=== PATIENT | male | born 1970 | race Two or more races ===

== ENCOUNTER 2024-09-06 15:14 | Emergency (ER) | payer OTHER ==
[~2024-09-06] VITALS: Ht 182.9 cm; Wt 103.5 kg
[2024-09-06 15:15] VITALS: TEMP 98.2
--- NOTE | 2024-09-06 15:28 | ECG ---
[facility] Test Date: 2024-09-06 Test Time: 15:25:47 Pat Name: REN BARLOW Department: ER Room: Gender: Claims Investigator: Mary Lou : 1970 Requested By: LINUS COLLADO Order Number: [id number] Reading MD: Quan Raya Measurements Intervals [place] Rate: 96 P: 47 [place]: 174 QRS: -16 QRSD: 96 T: 37 QT: 348 QTc: 440 Interpretive Statements Sinus rhythm Borderline left axis deviation Abnormal R-wave progression, late transition ST elev, probable normal early repol pattern Baseline wander in lead(s) V4 Electronically Signed On 09-06-2024 20:39:50 PDT by Quan Raya Please click the below link to view image of tracing.
--- NOTE | 2024-09-06 15:29 | ED.PDOC ---
HPI Comments 53 year old male presents to the ED with chief complaint of lightheadedness. Patient reports that while at [employer] an hour ago when he started to experience lightheadedness with associated palpitations and an episode of nausea/vomiting. Patient relays that he has history of HTN, however, he stopped taking his medication 2 years ago. Patient denies any abdominal pain, chest pain, SOB, vertigo, headache, numbness, or weakness. Chief Complaint: Dizziness Time Seen by MD: 15:26 Reviewed Notes: Nurses Notes, Medications, Allergies Allergies: Coded Allergies: NO KNOWN ALLERGIES (Unverified , 09/06/24) Information Source: Patient Mode of Arrival: Ambulatory Severity: Moderate Timing: Hours Duration: Since onset Prehospital treatment: None Onset: At Rest Cardiac Risk Factors: HTN PE Risk Factors: None History of: None Past Medical History PAST MEDICAL HISTORY: HTN Surgical History: Denies all surgeries Family History Family History: Reviewed,noncontributory to illness Social History Smoker: Non-Smoker Alcohol: Occasionally Drugs: Denies Drug Use Lives In: Home Constitutional: denies: chills, diaphoresis, fatigue, fever, malaise, sweats, weakness, others EENTM: denies: blurred vision, double vision, ear bleeding, ear discharge, ear drainage, ear pain, ear ringing, eye pain, eye redness, hearing loss, mouth pain, mouth swelling, nasal discharge, nose bleeding, nose congestion, nose pain, photophobia, tearing, throat pain, throat swelling, voice changes, others Respiratory: denies: cough, hemoptysis, orthopnea, SOB at rest, shortness of breath, SOB with excertion, stridor, wheezing, others Cardiovascular: reports: lightheadedness, palpitations; denies: chest pain, dizzy spells, diaphoresis, Dyspnea on exertion, edema, irregular heart beat, left arm pain, PND, syncope, others Gastrointestinal: reports: nausea, vomiting; denies: abdomen distended, abdominal pain, blood streaked bowels, constipated, diarrhea, dysphagia, difficulty swallowing, hematemesis, melena, poor appetite, poor fluid intake, rectal bleeding, rectal pain, others Genitourinary: denies: burning, dysuria, flank pain, frequency, hematuria, incontinence, penile discharge, penile sore, pain, testicle pain, testicle swelling, urgency, others Neurological: denies: dizziness, fainting, headache, left sided numbness, left sided weakness, numbness, paresthesia, pre-existing deficit, right sided numbness, right sided weakness, seizure, speech problems, tingling, tremors, weakness, others Musculoskeletal: denies: back pain, gout, joint pain, joint swelling, muscle pain, muscle stiffness, neck pain, others Integumetry: denies: bruises, change in color, change in hair/nails, dryness, laceration, lesions, lumps, rash, wounds, others Allergic/Immunocompromised: denies: Difficulty Healing, Frequent Infections, Hives, Itching, others Hematologic/Lymphatic: denies: anemia, blood clots, easy bleeding, easy bruising, swollen glands, others Endocrine: denies: excessive hunger, excessive sweating, excessive thirst, excessive urination, flushing, intolerance to cold, intolerance to heat, unexp lained weight gain, unexplained weight loss, others Psychiatric: denies: anxiety, bipolar disorder, depression, hopeless, panic disorder, schizophrenia, sleepless, suicidal, others All Other Systems: Reviewed and Negative Physical Exam General Appearance: No Apparent Distress, Normal HEENT: Normal ENT Inspection, PERRL/EOMI Neck: Full Range of Motion, Non-Tender, Normal, Normal Inspection Respiratory: Chest Non-Tender, Lungs Clear, No Accessory Muscle Use, No Respiratory Distress, Normal Breath Sounds Cardiovascular: No Edema, No JVD, No Murmur, No Gallop, Normal Peripheral Pulses, Regular Rate/Rhythm Breast Exam: Deferred Gastrointestinal: No Organomegaly, Non Tender, No Pulsatile Mass, Normal Bowel Sounds, Soft Genitalia: Deferred Pelvic: Deferred Rectal: Deferred Extremities: No calf tenderness, Normal capillary refill, Normal inspection, Normal range of motion, Non-tender, No pedal edema Musculoskeletal : Apperance: Normal Neurologic: Alert, air hoist operator II-XII nml as Tested, No Motor Deficits, Normal Affect, Normal Mood, No Sensory Deficits Cerebellar Function: Normal Reflexes: Normal Skin: Dry, Normal Color, Warm Lymphatic: No Adenopathy EKG EKG : Pulse Rate (adult): 96 [place]: Normal Block: None Hypertrophy: None ST: Normal Was a procedure done? Was a procedure done?: No CP Differential Dx Differential Diagnosis: A-fib, A-Flutter, Anxiety / Panic Attack, Atrial Dysrhythmia, AV Block 1st Degree, AV Block 2nd Degree, AV Block 3rd Degree, Electrolyte Disorder, Heart Failure, Hyperthyroidism, Hyperventilation, Hypoxia, SD, PVC's, Renal Failure, Sinus Tachycardia, T[place], Ventricular Dysrhythmia, V-Fib, V-Tach Differential Diagnosis: CHF, HTN Essential, HTN Accelerated, HTN Encephalopathy, Medical NonCompliance Differential Diagnosis: Myocardial Infarction, Pneumonia X-Ray, Labs, Meds, VS Vital Signs Date Time Temp Pulse Resp B/P (MAP) Pulse Ox O2 Delivery O2 Flow Rate FiO2 09/06/24 16:03 93 18 149/83 (105) 94 09/06/24 16:03 93 18 92 Room Air 09/06/24 15:55 95 Room Air* 0 21 09/06/24 15:30 149/83 09/06/24 15:30 96 09/06/24 15:15 98.2 90 18 173/113 (133) 98 98.2 191/107 (135) Lab Test 09/06/24 16:18 09/06/24 15:33 09/06/24 15:28 09/06/24 15:23 Range/Units Troponin I High Sensitivity Pending 13 </=54 ng/L White Blood Count 7.4 4.4-10.8 10^3/uL Red Blood Count 5.71 4.5-5.90 10^6/uL Hemoglobin 17.1 13.5-17.5 g/dL Hematocrit 51.7 41.0-53.0 % Mean Corpuscular Volume 90.5 80.0-100.0 fL Mean Corpuscular Hemoglobin 30.0 28.0-32.0 pg Mean Corpuscular Hemoglobin Concent 33.1 32.0-36.0 g/dL Red Cell Distribution Width 14.2 11.8-14.3 % Platelet Count 243 140-450 10^3/uL Mean Platelet Volume 8.9 6.9-10.8 fL Neutrophils (%) (Auto) 67.1 37.0-80.0 % Lymphocytes (%) (Auto) 20.0 10.0-50.0 % Monocytes (%) (Auto) 11.0 0.0-12.0 % Eosinophils (%) (Auto) 1.4 0.0-7.0 % Basophils (%) (Auto) 0.5 0.0-2.0 % Neutrophils # (Auto) 5.0 1.6-8.6 10 ^3/uL Lymphocytes # (Auto) 1.5 0.4-5.4 10 ^3/uL Monocytes # (Auto) 0.8 0-1.3 10 ^3/uL Eosinophils # (Auto) 0.1 0-0.8 10 ^3/uL Basophils # (Auto) 0 0-0.2 10 ^3/uL Nucleated Red Blood Cells 0.3 % Sodium Level 136 136-145 mmol/L Potassium Level 4.2 3.5-5.1 mmol/L Chloride Level 100 98-107 mmol/L Carbon Dioxide Level 29 20-31 mmol/L Anion Gap 7 5-15 Blood Urea Nitrogen 11 9-23 mg/dL Creatinine 1.04 0.700-1.30 mg/dL Glomerular Filtration Rate Calc 86 >90 mL/min BUN/Creatinine Ratio 10.6 10.0-20.0 Serum Glucose 183 H 74-106 mg/dL Calcium Level 9.6 8.7-10.4 mg/dL Urine Color Light-yellow Yellow Urine Clarity Clear Clear Urine pH 5.5 5.0-9.0 Urine Specific [place] 1.015 1.001-1.035 Urine Protein Negative Negative Urine Ketones Negative Negative Urine Blood Negative Negative /uL Urine Nitrite Negative Negative Urine Bilirubin Negative Negative Urine Urobilinogen Normal Negative mg/dL Urine Leukocyte Esterase Negative Negative /uL Urine RBC None seen 0 - 3 /hpf Urine Microscopic WBC < 1 0-3 /HPF Urine Squamous Epithelial Cells None seen <5 /hpf Urine Bacteria None seen None Seen /hpf Urine Glucose 3+ H Normal mg/dL POC Glucose 179 H 70-106 mg/dl Time of 1ST Reevaluation: 16:26 Reevaluation 1ST: Unchanged Time of 2ND Reevaluation: 16:47 Reevaluation 2ND: Resolved Patient Education/Counseling: Diagnosis, Treatment, Prognosis, Need For Follow Up Family Education/Counseling: No Family Present Additional Information Previous visits: None The following tests were ordered, and results were reviewed by me: CBC, BMP, Troponin, EKG, Chest XR Additional Information was gathered from interviewing the following independent historians: None I reviewed and agreed with the following test results read by other providers: CXR I discussed treatment and results with medical personnel and: Patient Comprehensive systems review obtained and negative except for what is stated in the HPI. pt had been noncompliant with his bp meds. he is improved and asymptomatic now. pt agrees to go back on his bp meds. the workup is unremarkable so far. Departure 1 Departure Time of Disposition: 16:47 Impression: Primary Impression: Hypertensive urgency Additional Impression: Medical non-compliance Disposition: HOME / SELF CARE / HOMELESS Condition: Stable e-Prescriptions Lisinopril (Lisinopril) 10 Mg Tab 10 MG PO DAILY for 30 Days, #30 TAB Prov: LINUS COLLADO MD 09/06/24 Discharged With: Self Critical Care Note Critical Care Time?: Yes (55 min-critical care time only) Critical care comment: Due to concerns for patients condition deteriorating, the care required my highest level of attention and readiness to intervene. I assessed the patient, reviewed the medical records, ordered the appropriate tests and treatments, then reassessed for results and responsiveness. I communicated with medical personnel and consultants and formulated a plan of care. Total critical care time excludes any procedures Stability Stability form required: No Heart Score Heart Score: Heart Score Response (Comments) Value History Highly Suspicious 2 EKG Normal 0 Age 45-64 1 Risk Factors 1 or 2 risk factors 1 Troponin N/A 0 Total 4 I personally scribed for LINUS COLLADO MD ([email or web address]) on 09/06/24 at 15:29. Electronically submitted by Angus Britton ([employer]). I personally scribed for LINUS COLLADO MD ([email or web address]) on 09/06/24 at 15:30. Electro nically submitted by Angus Britton ([facility]). LINUS COLLADO MD Sep 06, 2024 15:29
[2024-09-06] MEDS: cloNIDine HCL 0.1 MG TAB PO ONE (15:30)
[2024-09-06 15:53] LABS: Basophils # (auto) 0 10 ^3/uL (0-0.2); Basophils % (auto) 0.5 % (0.0-2.0); Eosinophils # (auto) 0.1 10 ^3/uL (0-0.8); Eosinophils % (auto) 1.4 % (0.0-7.0); Hematocrit 51.7 % (41.0-53.0); Hemoglobin 17.1 g/dL (13.5-17.5); Lymphocytes # (auto) 1.5 10 ^3/uL (0.4-5.4); Mean Corpuscular Hgb Conc. 33.1 g/dL (32.0-36.0); Mean Corpuscular Volume 90.5 fL (80.0-100.0); Monocytes # (auto) 0.8 10 ^3/uL (0-1.3); Neutrophils % (auto) 67.1 % (37.0-80.0); Nucleated Red Blood Cells % 0.3 %; Platelet Count (auto) 243 10^3/uL (140-450); Red Blood Cells 5.71 10^6/uL (4.5-5.90); Red Cell Distribution Width 14.2 % (11.8-14.3); White Blood Cell 7.4 10^3/uL (4.4-10.8)
[2024-09-06 15:55] VITALS: O2SAT 95
[2024-09-06 15:56] LABS: Urine Bacteria None Seen /hpf (None Seen)
[2024-09-06 16:03] VITALS: BP 149/83; PULSE 93; RESP 18; O2SAT 92
[2024-09-06 16:03] LABS: Chloride 100 mmol/L (98-107); Potassium 4.2 mmol/L (3.5-5.1)
[2024-09-06 16:04] LABS: Anion Gap 7 (5-15); Calcium 9.6 mg/dL (8.7-10.4); Carbon Dioxide 29 mmol/L (20-31)
[2024-09-06 16:09] LABS: BUN/Creatinine Ratio 10.6 (10.0-20.0); Blood Urea Nitrogen 11 mg/dL (9-23)
[2024-09-06 16:11] LABS: Urine Blood Negative /uL (Negative); Urine Clarity Clear (Clear); Urine Color Light-Yellow (Yellow); Urine Protein, UAD Negative (Negative); Urine Specific Gravity 1.015 (1.001-1.035); Urine Squamous Epithelial Cell None Seen /hpf (<5); Urine Urobilinogen Normal (Negative); Urine WBC < 1 /HPF (0-3); Urine pH 5.5 (5.0-9.0)
[2024-09-06 16:14] LABS: Glucose 183 mg/dL (74-106); Sodium 136 mmol/L (136-145)
--- NOTE | 2024-09-06 16:17 | DVH ---
CLINICAL INFORMATION: 53 years old, Male; lightheaded. TECHNIQUE: Single AP portable chest radiograph was obtained. COMPARISON: None FINDINGS: Lungs: Clear. Cardiac: Heart size is within normal limits. Pulmonary vasculature: Unremarkable. Mediastinum/arlene: Unremarkable. Bones: No acute osseous abnormality identified. Other: No other significant findings. IMPRESSION: No evidence of acute disease in the chest.
[2024-09-06] MEDS ORDERED: LISI10TA34 PO (16:48)
== END 2024-09-06 17:08 | disposition home or self-care (01) ==
LOC: ER 15:18
DX: I16.0 Hypertensive urgency (principal); I10 Essential (primary) hypertension; Z91.199 Patient's noncompliance with other medical treatment and regimen due to unspecified reason
CPT/HCPCS: 36415; 71045; 80048; 81001; 82947; 82962; 84484; 85025; 93005